=== PATIENT | male | born 2000 | race Caucasian/White ===

== ENCOUNTER 2020-11-08 09:02 | Emergency (ER) | payer MEDICAID, SELFPAY ==
[2020-11-08 09:16] VITALS: BP 130/96; PULSE 85; RESP 16; TEMP 36.4; O2SAT 99; BMI 33.2
--- NOTE | 2020-11-08 09:25 | HMH.EDUTC ---
[facility] Disposition Clinical Impression: Encounter for laboratory testing for COVID-19 virus Disposition: Home, Self-Care Condition on Discharge: Good Instructions: DI for COVID-19 (Suspected or Confirmed ), Coronavirus Disease 2019, Preventing the Spread of Coronavirus Discharge Instructions Additional Instructions: *Monitor Temp, Over the counter Motrin or Tylenol as directed/as needed Tylenol every 4 hours and Motrin every 6 hours (as long as your family doctor has told you that you can take it) for fever or pain. and straight to ER if unable to lower temp less than 101.0 after medication given Follow up IMMEDIATELY for new or worsening symptoms or no Noticeable improvement over the next 48-72 hours. 911 for difficulty breathing or swallowing You were tested for today for COVID19 your test result should be back in the next 24-48 hours, you may call to the [facility] to see if your test results are back in the next 48 hours [phone] [facility] hours are 9am-9pm You was given a handout with instructions for Self Quarantine and Self isolation for while you wait on test results and what to do if they are positive If you are positive the Health Dept will be contacting you also Referrals: PCP,No [Primary Care Provider] - As needed Forms: Work/School Release Time of Disposition: 09:28 Medical Decision Making - Raffy Inquiry Pt receiving controlled substance: No Raffy was queried for this patient: No Vital Signs: 11/08/20 09:16 Temperature 97.6 F Temperature Source Tympanic Pulse Rate [Right] 85 Respiratory Rate 16 Blood Pressure [Right Arm] 130/96 H Blood Pressure Mean [Right Arm] 107 Blood Pressure Source [Right Arm] Automatic Cuff Blood Pressure Position [Right Arm] Sitting 02 Sat by Pulse Oximetry 99 Oxygen Delivery Method Room Air - Lab Data Lab results reviewed: Yes: I reviewed the patient's lab results. Orders (Tests/Meds): ORDERS Category Date Time Status Covid-19 Nasal PCR ([facility]) Routine Lab 11/08/20 09:20 Received [facility] HPI - General Stated complaint: covid test Time Seen by Provider: 11/08/20 09:25 Mode of Arrival: Ambulatory Source of Information: Patient Limitations: No Limitations Description of Symptoms (Recalled from Triage Doc. by RN): pt needs a covid test to return to work. no direct exposure. no signs of symptoms today. 3-4 days ago he was having n/v/d and body aches. HEENT Symptoms (Recalled from RN notes): No Resp Symptoms (Recalled from RN notes): No Skin Symptoms (Recalled from RN notes): No MS Symptoms (Recalled from RN notes): No Functional Status (Recalled from RN notes): na - History of Present Illness Provider Complaint: Patient states that about 3-4 days ago he was having body aches, chills and N/V/D States that he is now feeling better but had to have COVID test before he can return to work - Related Data Allergies Allergy/AdvReac Type Severity Reaction Status Date / Time No Known Allergies Allergy Verified 11/08/20 09:15 - Worker's Comp Is this a Worker's Comp case?: No [facility] History - Hepatitis A Screen Drug use history?: No High risk sexual behaviors?: No History of sexually transmitted infection?: No Currently employed?: No Childcare worker?: No Do you have indoor plumbing?: Yes Do you have electricity?: Yes Attestation statement:: This patient has been screened for Hepatitis A risk factors. I have reviewed the patient's past medical history: Yes ROS Obtained: Yes All systems reviewed & no additional complaints, Yes Systems reviewed as appropriate & no additional complaints - Constitutional Constitutional: Reports system reviewed and no additional complaints, except as docu - ENT Ears, Nose, Mouth, and Throat: Reports system reviewed and no additional complaints, except as docu Physical Exam - General General appearance: alert, in no apparent distress - ENT ENT exam: Present: normal exam, normal oropharynx, mucous membranes moist, TM'
[2020-11-08 09:32] VITALS: BP 133/99; PULSE 87; RESP 16; TEMP 36.1
[2020-11-08 09:35] LABS: UTC Influenza A Antigen Negative (Negative)
[2020-11-08 09:36] LABS: UTC Influenza B Antigen Negative (Negative)
== END 2020-11-08 09:33 | disposition home or self-care (01) ==
PROVIDERS: Emergency Provider Nurse Practitioner
DX: Z20.822 Contact with and (suspected) exposure to COVID-19 (principal)
CPT/HCPCS: 87804; 99202; G0463; U0003

== ENCOUNTER 2021-03-30 21:26 | Emergency (ER) | payer MEDICAID, SELFPAY ==
[2021-03-30 21:47] VITALS: BP 170/76; PULSE 125; RESP 22; TEMP 39.3; O2SAT 98; BMI 38.4
[2021-03-30 21:48] VITALS: BMI 38.4
--- NOTE | 2021-03-30 21:58 | XR_ITS ---
PROCEDURE INFORMATION: Exam: XR Chest Exam date and time: 03/30/2021 9:58 PM Age: 20 years old Clinical indication: Cough; Additional info: Cough with fever TECHNIQUE: Imaging protocol: XR of the chest. Views: 2 views. COMPARISON: No relevant prior studies available. FINDINGS: Lungs: Unremarkable. No consolidation. Pleural spaces: Unremarkable. No pleural effusion. No pneumothorax. Heart/Mediastinum: Unremarkable. No cardiomegaly. Bones/joints: Unremarkable. IMPRESSION: No acute findings.
--- NOTE | 2021-03-30 22:03 | HMH.EDFEV ---
ED Disposition Clinical Impression: RSV (respiratory syncytial virus infection) Disposition: Home, Self-Care Condition on Discharge: Good Instructions: DI for Fever (Symptom) -- Adult Additional Instructions: fluids and see pcp for folow up Referrals: Fer Bates [Primary Care Provider] - - Critical Care Critical Care Time: No Attestation: On 03/30/21, the high probability of a clinically significant, sudden or life threatening deterioration of the following system(s) required my full and direct attention, intervention and personal management. The time I documented below is in addition to time spent performing reported procedures but includes the following listed in this critical care notation. Medical Decision Making - Medical Records Medical records reviewed: Yes: I reviewed the patient's medical records. - Raffy Inquiry Pt receiving controlled substance: No Vital Signs: 03/30/21 21:47 03/30/21 22:30 03/30/21 23:00 Temperature 102.8 F H 98.7 F Temperature Source Oral Oral Pulse Rate 101 H 97 H Pulse Rate [Right] 125 H Respiratory Rate 22 Blood Pressure 138/81 121/81 Blood Pressure [Right Arm] 170/76 H Blood Pressure Mean 91 Blood Pressure Mean [Right Arm] 107 Blood Pressure Source [Right Arm] Automatic Cuff Blood Pressure Position [Right Arm] Sitting 02 Sat by Pulse Oximetry 98 96 97 Oxygen Delivery Method Room Air - Lab Data Lab results reviewed: Yes: I reviewed the patient's lab results. Lab Results 03/30/21 22:00: Chlamy pneumoniae PCR Not detected, Adenovirus (PCR) Not detected, B. pertussis DNA (PCR) Not detected, Coronavirus OC43 (PCR) Not detected, Coronavirus HKU1 (PCR) Not detected, Coronavirus 229E (PCR) Not detected, SARS-CoV-2 (PCR) Not detected, Coronavirus NL63 (PCR) Not detected, Human Metapneumovir PCR Not detected, Influenza A (H1) PCR Not detected, Influ A (H1N1/09) PCR Not detected, Influenza A (H3) PCR Not detected, Influenza Type A (PCR) Not detected, Influenza Type B (PCR) Not detected, M. pneumoniae (PCR) Not detected, Parainfluenza 1 (PCR) Not detected, Parainfluenza 2 (PCR) Not detected, Parainfluenza 3 (PCR) Not detected, Parainfluenza 4 (PCR) Not detected, RSV (PCR) Detected A, Entero/Rhino (PCR) Not detected 03/30/21 22:00: WBC 8.3, RBC 5.34, Hgb 15.0, Hct 43.2, MCV 81.0, MCH 28.0, MCHC 34.6, RDW 13.4, Plt Count 206, MPV 7.8, Neut % (Auto) 83.2 H, Lymph % (Auto) 11.3, Crosby % (Auto) 3.3, Eos % (Auto) 1.9, Baso % (Auto) 0.3, Neut # (Auto) 6.9, Lymph # (Auto) 1.0, Crosby # (Auto) 0.3, Eos # (Auto) 0.2, Baso # (Auto) 0.0, ESR 15 03/30/21 22:00: Sodium 140, Potassium 3.9, Chloride 102, Carbon Dioxide 27, Anion Gap 14.9, BUN 11, Creatinine 0.90, Estimated Creat Clear 217, Estimated GFR 107, Est GFR ( Amer) 129, Glucose 100, Calcium 9.4, Total Bilirubin 0.5, AST 27, ALT 25, Alkaline Phosphatase 74, C-Reactive Protein 34.8 H, Total Protein 8.1, Albumin 5.0, Globulin 3.1, Albumin/Globulin Ratio 1.6, Procalcitonin 0.102 03/30/21 22:00: Lactate 1.1 03/31/21 00:12: Urine Color Yellow, Urine Appearance Sl cloudy, Urine pH 7.0, Ur Specific Elsa 1.015, Urine Protein Negative, Urine Glucose (UA) Negative, Urine Ketones 1+, Urine Blood Trace-i, Urine Nitrate Negative, Urine Bilirubin Negative, Urine Urobilinogen 0.2, Ur Leukocyte Esterase Negative Result diagrams: 03/30/21 22:00 03/30/21 22:00 Orders (Tests/Meds): ED MEDICATIONS Generic Name Dose Route Start Last Admin Trade Name Freq PRN Reason Stop Dose Admin Sodium Chloride 1,000 mls @ 999 mls/hr 03/30/21 22:00 03/30/21 22:07 Sod Chlor 0.9% 1000ml Bag IV 03/30/21 23:00 999 mls/hr .Q1H1M ADAN Administration Ceftriaxone Sodium 1 gm/ 50 mls @ 100 mls/hr 03/30/21 23:30 03/30/21 23:23 Sodium Chloride IV 04/13/21 23:29 100 mls/hr Q24H ADAN Administration Protocol Discontinued Medications Generic Name Dose Route Start Last Admin Trade Name Freq PRN Reason Stop Dose Admin Acetam
[2021-03-30 22:06] LABS: Adenovirus,PCR Not Detected (NotDetected); Bordetella Pertussis Not Detected (NotDetected); Chlamydophila Pneumoniae, PCR Not Detected (NotDetected); Coronavirus 19, PCR Not Detected (NotDetected); Coronavirus 229E Not Detected (NotDetected); Coronavirus NL63 Not Detected (NotDetected); Coronavirus OC43 Not Detected (NotDetected); Coronovirus HKU1,PCR Not Detected (NotDetected); Human Metapneumovirus Not Detected (NotDetected); Influenza A, PCR Not Detected (NotDetected); Influenza AH1, 2009 Not Detected (NotDetected); Influenza AH1, PCR Not Detected (NotDetected); Influenza AH3,PCR Not Detected (NotDetected); Influenza B, PCR Not Detected (NotDetected); Mycoplasma Pneumoniae, PCR Not Detected (NotDetected); Parainfluenza 1, PCR Not Detected (NotDetected); Parainfluenza 2, PCR Not Detected (NotDetected); Parainfluenza 3, PCR Not Detected (NotDetected); Parainfluenza 4, PCR Not Detected (NotDetected); Rhinovirus/Enterovirus Not Detected (NotDetected)
[2021-03-30 22:09] LABS: Basophils % 0.3 % (0.1-2.0); Eosinophils # 0.2 K/mm3 (0.0-0.4); Eosinophils % 1.9 % (0.1-12.0); Hematocrit 43.2 % (42.0-52.0); Lymphocytes % 11.3 % (10-50); Mean Corpuscular HGB Conc 34.6 g/dL (31.8-35.4); Mean Platelet Volume 7.8 fl (7.4-10.4); Monocytes # 0.3 K/mm3 (0.1-1.0); Monocytes % 3.3 % (1.7-9.3); Neutrophils # 6.9 K/mm3 (1.8-7.8); Neutrophils % 83.2 % (37.0-80.0); Platelet Count 206 K/mm3 (142-424); Red Blood Count 5.34 M/mm3 (4.60-6.20); Red Cell Distribution Width 13.4 % (11.5-17.5); White Blood Count 8.3 K/mm3 (4.8-10.8)
[2021-03-30 22:19] LABS: Alanine Aminotransferase 25 U/L (12-78); Albumin/Globulin Ratio 1.6 (1.1-1.8); Alkaline Phosphatase 74 U/L (38-126); Anion Gap 14.9 mEq/L (5-15); Aspartate Amino Transferase 27 U/L (17-59); Bilirubin,Total 0.5 mg/dl (0.2-1.3); Blood Urea Nitrogen 11 mg/dl (9-20); Calcium 9.4 mg/dl (8.4-10.2); Carbon Dioxide 27 mmol/L (22.0-30.0); Chloride 102 mmol/L (98-107); Creatinine Clearance Estimated 217 mL/min (50-200); Estimated Glomerular Filt Rate 107 ml/min (>60); GFR (African American) 129 ML/MIN (>60); Globulin 3.1 g/dL (1.3-3.2); Glucose 100 mg/dl (74-100); Lactic Acid 1.1 mmol/L (0.7-2.1); Potassium 3.9 mmoL/L (3.5-5.1); Sodium 140 mmol/L (136-145); Total Protein,Serum 8.1 g/dl (6.3-8.2)
[2021-03-30 22:24] LABS: C-Reactive Protein 34.8 mg/L (0-4)
[2021-03-30 22:30] VITALS: BP 138/81; PULSE 101; O2SAT 96
[2021-03-30 22:37] LABS: Procalcitonin 0.102 ng/mL (0.0-2.0)
[2021-03-30 23:00] VITALS: BP 121/81; PULSE 97; TEMP 37.1; O2SAT 97
[2021-03-30 23:01] LABS: Erythrocyte Sedimentation Rate 15 mm/hr (0-15)
[2021-03-31 00:22] LABS: Microscopic, Urine URINE MICROSCOPIC (MICROSCOPIC)
[2021-03-31 00:26] LABS: Appearance,Urine SL CLOUDY (Clear); Bilirubin,Urine Negative (Negative); Blood, Urine TRACE-I (Negative); Color,Urine YELLOW (Yellow); Glucose,Urine (UA) Negative (Negative); Ketones,Urine 1+ (Negative); Leukocyte Esterase,Urine Negative (Negative); Nitrate,Urine Negative (Negative); Protein,Urine Negative (Negative); Specific Gravity, Urine 1.015 (1.005-1.030); Urobilinogen,Urine 0.2 EU/dl (0.2)
[2021-03-31 00:49] LABS: Respiratory Syncytial Virus Detected (NotDetected)
[2021-03-31 01:02] VITALS: BP 119/76; PULSE 85; RESP 16; TEMP 36.9; O2SAT 98
[2021-03-31 01:37] LABS: Amorphous Sediment,Urine 1+ /lpf
== END 2021-03-31 01:04 | disposition home or self-care (01) ==
PROVIDERS: Emergency Provider Emergency Medicine; PCP Pediatrics
DX: J02.8 Acute pharyngitis due to other specified organisms (principal); B97.4 Respiratory syncytial virus as the cause of diseases classified elsewhere; F17.290 Nicotine dependence, other tobacco product, uncomplicated
CPT/HCPCS: 71046; 80053; 81001; 83605; 84145; 85025; 85651; 86140; 87040; 87581; 87633; 87798; 96365; 96366; 99284; J2405

== ENCOUNTER 2021-05-11 15:32 | Emergency (ER) | payer MEDICAID, SELFPAY ==
--- NOTE | 2021-05-11 17:09 | HMH.EDUTC ---
[facility] [place] Disposition Clinical Impression: Exposure to COVID-19 virus, Viral syndrome Disposition: Home, Self-Care Condition on Discharge: Good Instructions: DI for COVID-19 (Suspected or Confirmed ), Preventing the Spread of Coronavirus Discharge Instructions Additional Instructions: Drink plenty of fluids. Take tylenol for pain or fever. Return if you begin to have difficulty breathing. Follow up with your regular doctor. GO TO THE ER FOR ANY WORSENING SYMPTOMS Quarantine until you know the results of your covid-19 test. If it is positive, the health department should call you and give you further instructions about your length of Quarantine and other things. Notify your school or workplace of your results and follow their instructions regarding return to work/school. Prescriptions: Brompheniramine/Pseudoephed/Dm [Bromfed Dm Cough Syrup] 5 ml PO Q6HP PRN #240 ml PRN Reason: Cough Transmission Status: Received by [id number] Ondansetron [Zofran 4mg ODT] 4 mg PO Q8HP PRN #12 tab PRN Reason: Nausea Transmission Status: Received by [id number] Referrals: Fer Bates [Primary Care Provider] - Time of Disposition: 17:10 Medical Decision Making - Medical Records Medical records reviewed: No: I reviewed the patient's medical records. - Raffy Inquiry Pt receiving controlled substance: No Vital Signs: 05/11/21 17:10 05/11/21 17:37 Temperature 97.7 F 97.8 F Temperature Source Oral Pulse Rate 104 H Pulse Rate [Left] 106 H Respiratory Rate 18 18 Blood Pressure 138/76 Blood Pressure [Right Arm] 140/68 Blood Pressure Mean [Right Arm] 92 02 Sat by Pulse Oximetry 100 [facility] [place] HPI - General Stated complaint: Cov Test Time Seen by Provider: 05/11/21 17:24 - History of Present Illness Provider Complaint: He states that he has felt bad since yesterday. He has had a n/v/d, head ache, and a cough. - Related Data Previous Rx's Medication Instructions Recorded Brompheniramine/Pseudoephed/Dm 5 ml PO Q6HP PRN #240 ml 05/11/21 [Bromfed Dm Cough Syrup] Ondansetron [Zofran 4mg ODT] 4 mg PO Q8HP PRN #12 tab 05/11/21 Allergies Allergy/AdvReac Type Severity Reaction Status Date / Time No Known Allergies Allergy Verified 11/08/20 09:15 [facility] History - Hepatitis A Screen Attestation statement:: This patient has been screened for Hepatitis A risk factors. I have reviewed the patient's past medical history: Yes Medical History: Denies:: Diabetes Mellitus Type 1, Diabetes Mellitus Type 2 - Social History Smoking Status: Current every day smoker Tobacco Type: e-cigarettes # Packs/Day (cigarettes): 1 Alcohol Intake: never Occupational Status: employed ROS Obtained: Yes All systems reviewed & no additional complaints - Constitutional Constitutional: Reports as per HPI - Eyes Eyes: Denies eye discharge - ENT Ears, Nose, Mouth, and Throat: Reports as per HPI - Cardiovascular Cardiovascular: Denies chest pain - Respiratory Respiratory: Reports as per HPI - Gastrointestinal Gastrointestingal: Denies: abdominal pain, diarrhea, nausea, vomiting Physical Exam - General General appearance: alert, in no apparent distress - Head Head exam: atraumatic, normocephalic, normal inspection - Eye Eye exam: Present: normal appearance, PERRL, EOMI - ENT ENT exam: Present: normal exam, normal oropharynx, mucous membranes moist, TM's normal bilaterally, normal external ear exam - Neck Neck exam: Present: normal inspection, full ROM, trachea midline. Absent: meningismus, lymphadenopathy - Chest Chest inspection: Present: normal inspection, symmetric chest wall rise. Absent: tenderness - Respiratory Respiratory exam: Present: normal lung sounds bilaterally. Absent: respiratory distress - Cardiovascular Cardiovascular exam: Present: regular rate, normal rhythm. Absent: JVD - Abdominal Exam Abdominal exam: Present: soft, normal elaine
[2021-05-11 17:10] VITALS: BP 140/68; PULSE 106; RESP 18; TEMP 36.5; O2SAT 100; BMI 36.9
[2021-05-11 17:37] VITALS: BP 138/76; PULSE 104; RESP 18; TEMP 36.6
--- NOTE | 2021-05-12 09:57 | PC.NURSE ---
notified pt of positive covid test result
== END 2021-05-11 17:36 | disposition home or self-care (01) ==
PROVIDERS: Emergency Provider Nurse Practitioner Family; PCP Pediatrics
DX: U07.1 COVID-19 (principal); F17.210 Nicotine dependence, cigarettes, uncomplicated
CPT/HCPCS: 99202; G0463; U0003